=== PATIENT | female | born 1985 | race African-American/Black ===

== ENCOUNTER 2020-02-04 19:50 | Emergency (ER) | payer OTHER ==
[~2020-02-04] VITALS: Ht 147.3 cm; Wt 49.9 kg
[2020-02-05 01:54] VITALS: BP 00/00
== END 2020-02-05 01:50 | disposition home or self-care (01) ==
LOC: ER 19:50
DX: F15.10 Other stimulant abuse, uncomplicated (principal); F12.90 Cannabis use, unspecified, uncomplicated; F16.90 Hallucinogen use, unspecified, uncomplicated; F17.210 Nicotine dependence, cigarettes, uncomplicated